=== PATIENT | male | born 1985 | race American Indian/Alaskan Native ===

== ENCOUNTER 2019-12-27 05:30 | Emergency (ER) | payer OTHER ==
[2019-12-27] MEDS ORDERED: KETOROLAC 60 MG/2 ML INJ IM ONE (07:18)
[2019-12-27] MEDS ORDERED: dexAMETHasone 20 MG/5 ML VIAL IM ONE (07:18)
--- NOTE | 2019-12-27 07:49 | Emergency Department Report ---
ED Back Pain/Injury HPI - General Chief Complaint: Extremity Injury, Lower Stated Complaint: LOWER BACK/RT LEG PAIN Time Seen by Provider: 12/27/19 07:07 Source: patient Limitations: No Limitations - History of Present Illness Initial Comments: Patient is a 34-year-old male presents emergency room with complaints of right lower back pain that radiates down the right leg that began approximately a week ago. He denies any fall or injury. Patient states that he has discomfort with ambulation and raising his leg up. He states that he does do heavy lifting at work. He denies any fever, nausea, vomiting, diarrhea, numbness, weakness, bowel or bladder incontinence. He denies any history of cancer, IV drug use, steroid use. He denies any past medical history. He denies any allergies to medications. - Related Data Previous Rx's Medication Instructions Recorded Last Taken Type Menthol/Camphor [Mapleton Rogers 1 applic TP BID #18 oint...g. 12/27/19 Unknown Rx Ointment] Methocarbamol [Robaxin] 500 mg PO BID PRN #14 tablet 12/27/19 Unknown Rx Naproxen [EC-Naprosyn] 500 mg PO BID PRN #14 tablet. 12/27/19 Unknown Rx Allergies Allergy/AdvReac Type Severity Reaction Status Date / Time No Known Allergies Allergy Unverified 12/27/19 06:07 ED Review of Systems ROS: Stated complaint: LOWER BACK/RT LEG PAIN Other details as noted in HPI Comment: All other systems reviewed and negative ED Past Medical Hx - Past Medical History Previous Medical History?: No - Surgical History Past Surgical History?: No - Social History Smoking Status: Never Smoker Substance Use Type: None - Medications Home Medications: Home Medications Medication Instructions Recorded Confirmed Last Taken Type Menthol/Camphor [Map[place] Rogers 1 applic TP BID #18 oint...g. 12/27/19 Unknown Rx Ointment] Methocarbamol [Robaxin] 500 mg PO BID PRN #14 tablet 12/27/19 Unknown Rx Naproxen [EC-Naprosyn] 500 mg PO BID PRN #14 tablet. 12/27/19 Unknown Rx ED Physical Exam - General Limitations: No Limitations General appearance: alert, in no apparent distress - Head Head exam: Present: atraumatic, normocephalic - Eye Eye exam: Present: normal appearance - ENT ENT exam: Present: mucous membranes moist - Neck Neck exam: Present: normal inspection, full ROM. Absent: tenderness - Back Exam Back exam: Present: normal inspection, full ROM, paraspinal tenderness (right sided lumbar paraspinal muscular ttp, no midline C-spine, T-spine, or L-spine ttp, no step offs, no deformities, pain elicited on SLR of the right leg, no pain with SLR of the left leg ). Absent: vertebral tenderness - Neurological Exam Neurological exam: Present: alert, oriented X3, CN II-XII intact, normal gait. Absent: motor sensory deficit - Psychiatric Psychiatric exam: Present: normal affect, normal mood - Skin Skin exam: Present: warm, dry, intact ED Course Vital Signs 12/27/19 12/27/19 12/27/19 05:57 07:41 08:00 Temperature 98.3 F Pulse Rate 71 Respiratory 18 18 18 Rate Blood Pressure 128/90 O2 Sat by Pulse 99 Oximetry 12/27/19 08:03 Temperature Pulse Rate 65 Respiratory Rate Blood Pressure 135/87 O2 Sat by Pulse 99 Oximetry ED Medical Decision Making - Medical Decision Making Patient is a 34-year-old male presents emergency room with complaints of right lower back pain that radiates down the right leg that began approximately a week ago. He denies any fall or injury. Patient states that he has discomfort with ambulation and raising his leg up. He states that he does do heavy lifting at work. He denies any fever, nausea, vomiting, diarrhea, numbness, weakness, bowel or bladder incontinence. He denies any history of cancer, IV drug use, steroid use. He denies any past medical history. He denies any allergies to medications. vitals are normal. on exam: right sided lumbar paraspinal muscular ttp, no midline C-spine, T-spine, or L-spine ttp, no step offs, no deformities, pain elicited on SLR of the right leg, no pain with SLR of the left leg , no neuro deficits. Examination and presentation appear most consistent with sciatica. Patient has no red flag warning signs of back pain, no trauma, no unexplained weight loss, no neuro deficits, age is not greater than 50, no fever, no IV drug use, no history of cancer, no steroid use. Patient given dexamethasone and Toradol IM while in the emergency department and symptoms improved. Patient given prescription for Robaxin, naproxen, Mapleton balm ointment. Advised patient Please use medication as prescribed. Do not drive or operate heavy machinery or work while taking muscle relaxer (robaxin) due to potential for drowsiness. may use ice pack for 15 minutes at a time, heating pad 15 minutes at a time, rest, Epson salt bath. Please do the stretches for sciatica. Follow-up with a primary care doctor. Follow-up with an orthopedic doctor. Return to emergency room for any new or worsening symptoms. - Differential Diagnosis muscle strain, sciatica, piriformis syndrome, DDD, bulging disc, radiculopa Critical care attestation.: If time is entered above; I have spent that time in minutes in the direct care of this critically ill patient, excluding procedure time. ED Disposition Clinical Impression: Sciatica Qualifiers: Laterality: right Qualified Code(s): M54.31 - Sciatica, right side Disposition: - TO HOME OR SELFCARE Is pt being admited?: No Does the pt Need Aspirin: No Condition: Stable Instructions: Sciatica (ED) Additional Instructions: Please use medication as prescribed. Do not drive or operate heavy machinery or work while taking muscle relaxer (robaxin) due to potential for drowsiness. may use ice pack for 15 minutes at a time, heating pad 15 minutes at a time, rest, Epson salt bath. Please do the stretches for sciatica. Follow-up with a primary care doctor. Follow-up with an orthopedic doctor. Return to emergency room for any new or worsening symptoms. Prescriptions: Naproxen [EC-Naprosyn] 500 mg PO BID PRN #14 tablet. PRN Reason: pain Methocarbamol [Robaxin] 500 mg PO BID PRN #14 tablet PRN Reason: pain Menthol/Camphor [Mapleton Rogers Ointment] 1 applic TP BID #18 oint...g. Referrals: PRABHA IRELAND MD [Primary Care Provider] - 2-3 Days LES FLOR MD [Staff Physician] - 2-3 Days RANDOLPH ALVAREZ MD [Staff Physician] - 2-3 Days (orthopedic ) [facility] [Provider Group] - 2-3 Days (orthopedic) Time of Disposition: 07:49 Print Language: KAZAKH
[2019-12-27 08:22] VITALS: BP 135/87
== END 2019-12-27 08:04 | disposition home or self-care (01) ==
LOC: ED 05:30
DX: M54.31 Sciatica, right side (principal)
CPT/HCPCS: 96372; 99282; J1100; J1885

== ENCOUNTER 2020-07-22 14:28 | Emergency (ER) | payer BC, OTHER ==
[2020-07-22 14:43] VITALS: BP 131/90
--- NOTE | 2020-07-22 15:12 | Emergency Department Report ---
Chief Complaint: Medical Clearance Stated Complaint: SKIN RASH - HPI History of Present Illness: 34-year-old asymptomatic male patient presents emergency department the instruction of his employer because he was exposed to scabies 2 weeks ago. He has no rash. He has no symptoms. Vital signs are stable. - Exam Vital Signs: Vital Signs 07/22/20 14:40 Temperature 98.5 F Pulse Rate 82 Respiratory 16 Rate Blood Pressure 131/90 O2 Sat by Pulse 98 Oximetry Physical Exam: General: Awake, appropriately interactive, no acute distress. Neck: Supple. Full range of motion intact. Cardiovascular: Normal peripheral perfusion. Pulmonary: No respiratory distress. Patient is speaking normally without use of accessory muscles. Skin: No apparent rashes or lesions. Neurological: No facial asymmetry. Speech is clear. Follows commands. Patient is alert and oriented. Musculoskeletal: Moves all four extremities spontaneously with normal range of motion. Psych: Cooperative. Appropriate mood and affect. MSE screening note: Focused history and physical exam performed. Due to findings the following was ordered: ED Medical Decision Making - Medical Decision Making Patient presents to the emergency department at the instruction of his employer for screening. He was exposed to scabies 2 weeks ago. He has no rash. He has no symptoms. He has normal vital signs. Cleared to return to work. Discharged home in stable condition. BILLING/CODING: This patient encounter does not represent a certified medical emergency. ED Disposition for MSE Clinical Impression: Exposure to scabies Disposition: Z-07 MED SCREENING EXAM-LEFT Is pt being admited?: No Does the pt Need Aspirin: No Condition: Stable Instructions: Contact Precautions Additional Instructions: Follow-up with your primary care provider if a rash develops. Referrals: LES FLOR MD [Staff Physician] - 3-5 Days Forms: Work/School Release Form(ED) Time of Disposition: 15:12
== END 2020-07-22 15:29 | disposition left against medical advice (07) ==
LOC: ED 14:28
DX: R21 Rash and other nonspecific skin eruption (principal); Z53.21 Procedure and treatment not carried out due to patient leaving prior to being seen by health care provider